=== PATIENT | female | born 1930 | race Caucasian/White ===

== ENCOUNTER 2016-08-06 07:45 | Emergency (ER) | payer MEDICARE, OTHER ==
[2016-08-06] MEDS ORDERED: DOCUSATE SODIUM 100 MG CAPSULE ONE (09:05)
== END 2016-08-06 09:17 | disposition home or self-care (01) ==
LOC: ED 07:45
DX: K59.00 Constipation, unspecified (principal); E11.9 Type 2 diabetes mellitus without complications; Z79.899 Other long term (current) drug therapy; Z79.4 Long term (current) use of insulin; Z79.82 Long term (current) use of aspirin; Z79.891 Long term (current) use of opiate analgesic
CPT/HCPCS: 99282; 99283; A9270